=== PATIENT | female | born 1985 ===

== ENCOUNTER 2018-08-09 18:35 | Inpatient (IN) | payer OTHER ==
[2018-08-10] MEDS ORDERED: MINERAL OIL PO PRN ×2 (02:14→09:00)
[2018-08-10] MEDS ORDERED: STADOL IV PRN (02:14)
[2018-08-10] MEDS ORDERED: SUBLIMAZE IV PRN (02:14)
[2018-08-10] MEDS ORDERED: AMPICILLIN/NS 2 GM/100 ML 2 GM/100 ML BAG IV ONE (02:14)
[2018-08-10] MEDS ORDERED: XYLOCAINE 2% INFILTRATI ONE (02:14)
[2018-08-10 02:59] LABS: Hematocrit 35.4 % (30.3-42.9); Hemoglobin 12.2 gm/dl (10.1-14.3); Mean Corpuscular HGB Conc 34 % (30-34); Mean Corpuscular Volume 89 fl (79-97); Platelet Count 220 K/mm3 (140-440); Red Blood Count 3.99 M/mm3 (3.65-5.03); Red Cell Distribution Width 14.9 % (13.2-15.2)
[2018-08-10] MEDS ORDERED: PITOCin/NS 20 UNIT/1000ML DRIP 20 UNITS/1,000 ML BAG IV SCH ×3 (03:00→19:00)
[2018-08-10] MEDS ORDERED: LACTATED RINGERS 1,000 ML IV SCH ×2 (03:00→08:00)
--- NOTE | 2018-08-10 07:10 | History and Physical Report ---
History of Present Illness Date of examination: 08/10/18 Date of admission: 08/10/18 06:54 Chief complaint: Labor History of present illness: Pt is a 32yo BF EDC 08/15/18; EGA 39 2/7 weeks presents to L&D complaining of irregular contractions. She received care at [facility] since 16 weeks and co-managed by [facility] for URIAH's. records are available and GBS is Positive. Past History Past Medical History: other (Obesity) Past Surgical History: no surgical history [employer] History: herpes Social history: no significant social history, single - Obstetrical History Expected Date of Delivery: 08/15/18 Actual Gestation: 39 Week(s) 2 Day(s) : 4 Medications and Allergies Allergies Allergy/AdvReac Type Severity Reaction Status Date / Time No Known Allergies Allergy Unverified 06/15/15 11:30 Home Medications Medication Instructions Recorded Confirmed Last Taken Type Multivitamin Tablet 1 tab PO QDAY 03/10/17 08/09/18 08/08/18 History Active Meds: Active Medications Butorphanol Tartrate (Stadol) 2 mg IV Q2H PRN PRN Reason: Pain , Severe (7-10) Fentanyl (Sublimaze) 100 mcg IV Q2H PRN PRN Reason: Labor Pain Oxytocin/Sodium Chloride (Pitocin/Ns 20 Unit/1000ml Drip) 20 units in 1,000 mls @ 125 mls/hr IV DIRECT KAREN Lactated Ringer's (Lactated Ringers) 1,000 mls @ 125 mls/hr IV DIRECT KAREN Last Admin: 08/10/18 05:10 Dose: 125 mls/hr Documented by: Ampicillin Sodium (Ampicillin/Ns 1 Gm/50 Ml) 1 gm in 50 mls @ 100 mls/hr IV Q4HR KAREN; Protocol Mineral Oil (Mineral Oil) 30 ml PO QHS PRN PRN Reason: Constipation Review of Systems All systems: negative - Vital Signs Vital signs: Vital Signs Pulse BP 90 108/60 08/09/18 22:33 08/09/18 22:33 Temp Pulse Resp BP Pulse Ox 98.1 F 98 H 18 111/57 96 08/10/18 04:36 08/10/18 06:01 08/10/18 04:43 08/10/18 06:01 08/10/18 05:43 - Physical Exam Abdomen: Positive: normal appearance Genitourinary (Female): Positive: normal external genitalia Vagina: Positive: normal moisture Uterus: Positive: enlarged Extremities: Positive: normal - Obstetrical FHR: category 1 Uterine Contraction Monitor Mode: External Cervical Dilatation: 4.5 Cervical Effacement Percentage: 60 station: -2 Uterine Contraction Pattern: Irregular Uterine Tone Measurement Phase: Contraction Uterine Contraction Intensity: Mild Results Result Diagrams: 08/10/18 02:45 Abnormal lab results 08/10/18 Range/Units 02:45 WBC 11.8 H (4.5-11.0) K/mm3 All other labs normal. Assessment and Plan - Patient Problems (1) 39 weeks gestation of Onset Date: 08/10/18 Current Visit: Yes Status: Acute Plan to address problem: A: IUP @ 39 2/7 weeks in early labor + GBS +RPR P: Admit to L&D for expectant vaginal delivery IV Ampicillin Pitocin augmentation of labor
[2018-08-10] MEDS ORDERED: XYLOCAINE 2% INFILTRATI NR (08:30)
[2018-08-10] MEDS ORDERED: BRETHINE IVP PRN (09:30)
[2018-08-10] MEDS ORDERED: PITOCin/NS 30 UNIT/500ML 30 UNITS/500 ML BAG IV SCH ×2 (09:30)
[2018-08-10] MEDS ORDERED: ZOFRAN IV PRN ×2 (09:30→18:56)
[2018-08-10] MEDS ORDERED: BRETHINE SUB-Q PRN (09:30)
[2018-08-10] MEDS: AMPICILLIN/NS 1 GM/50 ML 1 GM/50 ML BAG IV SCH ×2 (10:04→15:20)
[2018-08-10] MEDS ORDERED: MARCAINE 0.25% INFILTRATI ONE (14:20)
[2018-08-10] MEDS ORDERED: NARCAN 2 MG/2 ML IV PRN (14:40)
--- NOTE | 2018-08-10 14:42 | Anesthesia Consultation ---
Anesthesia Consult and Med Hx Date of service: 08/10/18 - Airway Anesthetic Teeth Evaluation: Good Mental/Hyoid Distance: Adequate Mallampati Class: Class II - Pulmonary Exam CTA: Yes - Cardiac Exam Cardiac Exam: RRR - Pre-Operative Health Status ASA Pre-Surgery Classification: ASA2 Proposed Anesthetic Plan: General - Pulmonary Hx Asthma: No COPD: No Hx Pneumonia: No - Cardiovascular System Hx Hypertension: No - Central Nervous System Hx Seizures: No Hx Psychiatric Problems: No - Endocrine Hx Renal Disease: No Hx End Stage Renal Disease: No Hx Hypothyroidism: No Hx Hyperthyroidism: No - Hematic Hx Anemia: No Hx Sickle Cell Disease: No - Other Systems Hx Alcohol Use: No
[2018-08-10] MEDS ORDERED: fentaNYL-BUPIV 2 MCG/ML-0.125% 200 MCG/100 ML BAG EPIDURAL SCH (15:00)
[2018-08-10] MEDS ORDERED: PEPCID IV ONE (15:24)
[2018-08-10] MEDS ORDERED: ANCEF/STERILE WATER 2 GM/20 ML 0 GM/0 ML SYRINGE IV ONE (15:24)
[2018-08-10] MEDS ORDERED: BICITRA ONE (15:24)
[2018-08-10] MEDS ORDERED: REGLAN ONE (15:24)
--- NOTE | 2018-08-10 18:55 | Procedure Note ---
OB Delivery Note - Delivery Date of Delivery: 08/10/18 Surgeon: MEHDI LUNDBERG Estimated blood loss: 300cc - Vaginal Delivery presentation: vertex Delivery position: OA Intrapartum events: none Delivery induction: none Delivery augmentation: rupture of membranes, pitocin Delivery monitor: external FHT, external uterine Route of delivery: Delivery placenta: spontaneous Delivery cord: 3 umbilical vessels Episiotomy: none Delivery laceration: none Anesthesia: epidural Delivery comments: delivered OA and placed on Mom's chest for [id number] bonding and delayed cord clamping, cut by Dad - Infant A at 1 minute: 8 at 5 minutes: 9 Gender: Male (3406gms)
[2018-08-10] MEDS ORDERED: BENADRYL PO PRN (18:56)
[2018-08-10] MEDS ORDERED: LANSINOH TP PRN (18:56)
[2018-08-10] MEDS ORDERED: TUCKS PAD TP PRN (18:56)
[2018-08-10] MEDS ORDERED: TYLENOL PO PRN (18:56)
[2018-08-10] MEDS ORDERED: PHENERGAN PR PRN (18:56)
[2018-08-10] MEDS ORDERED: PHENERGAN PO PRN (18:56)
[2018-08-10] MEDS ORDERED: DULCOLAX PR PRN (18:56)
[2018-08-10] MEDS ORDERED: MILK OF MAGNESIA PO PRN (18:56)
[2018-08-10] MEDS ORDERED: SODIUM CHLORIDE FLUSH SYRINGE 10 ML IV NR (19:00)
[2018-08-10] MEDS: IBUPROFEN PO SCH (19:51)
[2018-08-10] MEDS ORDERED: METHERGINE IM ONE ×2 (20:45→20:46)
[2018-08-10] MEDS: COLACE PO SCH (23:26)
[2018-08-10] MEDS: NORCO 5/325 PO PRN (23:26)
[2018-08-10] MEDS: FEOSOL PO SCH (23:26)
[2018-08-10] MEDS: METHERGINE PO SCH (23:27)
[2018-08-11] MEDS: IBUPROFEN PO SCH ×4 (01:00→23:39)
[2018-08-11] MEDS ORDERED: M-M-R II VACCINE SUB-Q ONE (06:00)
[2018-08-11] MEDS ORDERED: BOOSTRIX IM ONE (06:00)
[2018-08-11 06:10] LABS: Hematocrit 36.3 % (30.3-42.9); Hemoglobin 12.4 gm/dl (10.1-14.3)
[2018-08-11] MEDS: METHERGINE PO SCH (06:20)
[2018-08-11] MEDS: NORCO 5/325 PO PRN (06:20)
--- NOTE | 2018-08-11 09:34 | Progress Note ---
Assessment and Plan - Patient Problems (1) 39 weeks gestation of Onset Date: 08/10/18 Current Visit: Yes Status: Resolved (2) (normal spontaneous vaginal delivery) Onset Date: 08/11/18 Current Visit: No Status: Resolved Plan to address problem: A: S/P - PPD #1 Doing well P: May go home tomorrow. Subjective - Subjective Date of service: 08/11/18 Principal diagnosis: s/p - PPD #1 Interval history: Pt is feeling well without complaints. Bleeding improved. Patient reports: appetite normal, voiding normally, pain well controlled, flatus, ambulating normally, no dizzy ambulation, no nauseated [place]: doing well, nursing well, bottle feeding Objective - Vital Signs Latest vital signs: Vital Signs Temp Pulse Resp BP Pulse Ox 08/11/18 06:21 18 08/11/18 06:20 18 08/11/18 00:38 98.3 F 79 20 92/53 98 08/10/18 23:26 18 08/10/18 21:12 98.1 F 89 20 111/70 100 08/10/18 20:22 86 98 08/10/18 20:04 91 H 104/59 08/10/18 19:51 16 08/10/18 19:49 82 102/57 08/10/18 19:35 84 111/68 08/10/18 19:19 88 113/68 08/10/18 19:05 97.6 F 91 H 20 114/63 08/10/18 18:37 77 121/74 08/10/18 18:34 88 97 08/10/18 18:29 69 100 08/10/18 18:24 77 100 08/10/18 18:23 76 89 08/10/18 18:19 83 100 08/10/18 18:14 79 100 08/10/18 18:09 87 100 08/10/18 18:04 63 100 08/10/18 17:59 77 100 08/10/18 17:54 78 100 08/10/18 17:49 72 100 08/10/18 17:44 70 100 08/10/18 17:39 64 100 08/10/18 17:37 70 90/54 08/10/18 17:34 67 100 08/10/18 17:29 65 100 08/10/18 17:24 70 100 08/10/18 17:19 65 100 08/10/18 17:14 72 100 08/10/18 17:09 67 99 08/10/18 17:08 71 83/57 08/10/18 17:04 71 100 08/10/18 16:59 71 100 08/10/18 16:54 68 100 08/10/18 16:49 67 100 08/10/18 16:44 68 100 08/10/18 16:39 70 100 08/10/18 16:38 70 118/59 08/10/18 16:34 68 100 08/10/18 16:29 71 100 08/10/18 16:24 73 100 08/10/18 16:19 77 100 08/10/18 16:16 75 122/71 08/10/18 16:14 78 100 08/10/18 16:09 76 100 08/10/18 16:08 77 88/55 08/10/18 16:04 72 100 08/10/18 15:59 76 100 08/10/18 15:54 74 100 08/10/18 15:52 96.5 F L 20 08/10/18 15:49 74 100 08/10/18 15:44 74 100 08/10/18 15:39 73 100 08/10/18 15:37 76 99/54 08/10/18 15:34 78 100 08/10/18 15:29 78 99 08/10/18 15:24 74 100 08/10/18 15:19 73 100 08/10/18 15:14 74 98 08/10/18 15:09 71 98 08/10/18 15:08 76 95/51 08/10/18 15:04 79 97 08/10/18 14:59 72 98 08/10/18 14:56 76 94 08/10/18 14:54 79 95 08/10/18 14:51 84 94 08/10/18 14:49 76 96 08/10/18 14:46 83 105/56 08/10/18 14:44 90 100 08/10/18 14:39 99 H 100 08/10/18 14:37 93 H 117/64 08/10/18 14:34 93 H 99 08/10/18 14:32 96 H 123/75 08/10/18 14:29 92 H 100 08/10/18 14:24 88 132/58 100 08/10/18 14:19 103 H 99 08/10/18 14:14 86 100 08/10/18 14:09 90 99 08/10/18 14:04 87 99 08/10/18 13:59 89 100 08/10/18 13:54 87 100 08/10/18 13:08 76 96/53 08/10/18 12:38 75 112/56 08/10/18 11:09 82 88/55 08/10/18 10:51 89 114/68 08/10/18 10:20 80 117/55 08/10/18 09:50 90 131/73 Intake and Output 08/10/18 08/11/18 08/11/18 22:59 06:59 14:59 Intake Total 2.333 120 Output Total 700 300 Balance -697.667 -180 Intake: IV 2.333 PITOCin/NS 30 UNIT/500ML 2.333 30 units In 500 ml @ 4 mls/hr IV TITR KAREN Rx#: [id number] Oral 120 Output: Urine 700 300 Uretheral ([place]rison) 300 Void 400 300 Other: Total, Intake Amount 120 Total, Output Amount 400 300 Estimated Blood Loss 300 - Exam Breasts: Present: deferred Abdomen: Present: normal appearance, soft Uterus: Present: normal, firm, fundal height below umbilicus Extremities: Present: normal - Labs Labs: Laboratory Tests 08/10/18 08/10/18 08/10/18 02:45 02:45 06:17 WBC 11.8 H RBC 3.99 Hgb 12.2 Hct 35.4 MCV 89 MCH 31 MCHC 34 RDW 14.9 Plt Count 220 RPR Nonreactive Blood Type A POSITIVE Antibody Screen Negative 08/11/18 05:51 WBC RBC Hgb 12.4 Hct 36.3 MCV MCH MCHC RDW Plt Count RPR Blood Type Antibody Screen
[2018-08-11] MEDS: COLACE PO SCH ×2 (10:09→21:48)
[2018-08-11] MEDS: FEOSOL PO SCH ×2 (10:10→21:49)
[2018-08-11] MEDS: PRENATAL VITAMIN PO SCH (10:10)
--- NOTE | 2018-08-11 11:26 | Discharge Summary ---
Providers - Providers Date of Admission: 08/10/18 06:54 Date of discharge: 08/12/18 Attending physician: MEHDI LUNDBERG Primary care physician: MEHDI LUDNBERG Hospitalization Reason for admission: active labor, IUP at term Delivery: Episiotomy: none Laceration: none Other procedures: none complications: none Discharge diagnosis: IUP at term delivered [employer] baby: male Hospital course: Unremarkable. Condition at discharge: Good Disposition: DC-01 TO HOME OR SELFCARE - Discharge Diagnoses (1) 39 weeks gestation of Status: Resolved (2) (normal spontaneous vaginal delivery) Status: Resolved Plan - Discharge Medications Prescriptions: Ferrous Sulfate [Feosol 325 MG tab] 325 mg PO BID #60 tablet Ibuprofen [Motrin 600 MG tab] 600 mg PO Q6H #30 tablet Vit-Fe Fumar-FA [ Vitamin] 1 each PO QDAY #30 tablet - Provider Discharge Summary Activity: routine, no sex for 6 weeks, no heavy lifting 4 weeks, no strenuous exercise Diet: routine Instructions: routine Additional instructions: [] Smoking cessation referral if applicable(refer to patient education folder for contact #) [] Refer to [facility]'s [facility] Booklet Call your doctor immediately for: * Fever > 100.5 * Heavy vaginal bleeding ( >1 pad per hour) * Severe persistent headache * Shortness of breath * Reddened, hot, painful area to leg or breast * Drainage or odor from incision. * Keep incision clean and dry at all times and follow doctor's instructions regarding bathing/showering - Follow up plan Follow up: MEHDI LUNDBERG MD [Primary Care Provider] - 6 Weeks ASHLEIGH ESCAMILLA CNM [Advanced Practice Nurse] - 6 Weeks
--- NOTE | 2018-08-11 14:35 | Post Anesthesia Evaluation ---
- Post Anesthesia Evaluation Patient Participated: Yes Airway Patent: Yes Stable Respiratory Function: Yes Nausea/Vomiting: No Temp > 96.8F: Yes Pain Manageable: Yes Adequeate Hydration: Yes Anesthesia Complications: No Block Receding Appropriately: Yes Patient on Ventilator: No
[2018-08-12] MEDS: IBUPROFEN PO SCH ×2 (05:38→12:50)
[2018-08-12 07:48] VITALS: BP 95/40
[2018-08-12] MEDS: FEOSOL PO SCH (12:50)
[2018-08-12] MEDS: COLACE PO SCH (12:50)
[2018-08-12] MEDS: NORCO 5/325 PO PRN (12:50)
[2018-08-12] MEDS: PRENATAL VITAMIN PO SCH (12:50)
== END 2018-08-12 14:20 | disposition home or self-care (01) | DRG 806 ==
LOC: TRG 18:35 → LD 08-10 06:54 → TRG 08-10 06:54 → OB 08-10 21:17
PROVIDERS: ADMIT Obstetrics & Gynecology; ATTEND Obstetrics & Gynecology
PROC: 10E0XZZ Delivery of Products of Conception, External Approach (ICD-10-PCS; principal; 2018-08-10)
PROC: 3E0R3BZ Introduction of Anesthetic Agent into Spinal Canal, Percutaneous Approach (ICD-10-PCS; 2018-08-10)
PROC: 00HU33Z Insertion of Infusion Device into Spinal Canal, Percutaneous Approach (ICD-10-PCS; 2018-08-10)
PROC: 3E0234Z Introduction of Serum, Toxoid and Vaccine into Muscle, Percutaneous Approach (ICD-10-PCS; 2018-08-11)
DX: O99.824 Streptococcus B carrier state complicating childbirth (principal); Z68.41 Body mass index [BMI] 40.0-44.9, adult; Z37.0 Single live birth; Z3A.39 39 weeks gestation of pregnancy; E66.01 Morbid (severe) obesity due to excess calories; Z23 Encounter for immunization; O99.214 Obesity complicating childbirth
CPT/HCPCS: 36415; 85014; 85018; 85027; 86592; 86706; 86850; 86900; 86901; G0378; J0290; J0595; J0690; J2210; J2590; J2765; J3010; J7120